=== PATIENT | female | born 1975 | race Caucasian/White ===

== ENCOUNTER → 2018-03-17 | Outpatient (CLI) | payer OTHER ==
[~2018-03-17] MED LIST: SINGULAIR 10 MG10 M1 PO; VITAMIN D 5050000 I1 PO
== END ==
LOC: M.RAD 12:50
DX: Z12.31 Encounter for screening mammogram for malignant neoplasm of breast (principal); G43.909 Migraine, unspecified, not intractable, without status migrainosus